=== PATIENT | female | born 1960 | race Caucasian/White ===

== ENCOUNTER 2018-11-18 07:43 | Observation (INO) | payer OTHER ==
--- NOTE | 2018-11-18 08:05 | ED ---
GI/ HPI - HPI Summary HPI Summary: Patient is a 64-year-old female with a complicated medical history who presents to the ED with concern for UTI. She states she has had septicemia 3 times in the past, and was told to come to the closest ED if her temp was ever over 100.0. She states she took her temperature this morning which was 102. She also stated she felt clammy and diaphoretic last evening, but denies this currently. Patient states she is otherwise well, feeling her baseline. She was recently diagnosed with CHF, and is currently taking Lasix. She denies any SOB, CP, abdominal pain, back pain, weakness. She does not feel diaphoretic or clammy at this time, but is concerned due to her frequency of UTIs. She states she needs to take IV antibiotics only for her UTIs as she is allergic to all by mouth medications. She is a patient to the clinics at [facility] called she was able to call the clinic this morning who advised her to come here. - History of Current Complaint Chief Complaint: EDSyncope Stated Complaint: DIZZINESS PER EMS Hx Obtained From: Patient Onset/Duration: Started Hours Ago Timing: Constant Severity: Mild Current Severity: None Pain Intensity: 0 Associated Signs and Symptoms: Positive: Other: - clammy and diaphoretic Aggravating Factor(s): Nothing Alleviating Factor(s): Nothing - Allergy/Home Medications Allergies/Adverse Reactions: Allergies Allergy/AdvReac Type Severity Reaction Status Date / Time No Known Allergies Allergy Verified 11/18/18 07:54 Home Medications: Home Medications NK [No Home Medications Reported] 11/18/18 [History Confirmed 11/18/18] PMH/Surg Hx/FS Hx/Imm Hx Previously Healthy: Yes - Immunization History Hx Pertussis Vaccination: No Immunizations Up to Date: Yes Infectious Disease History: No Infectious Disease History: Denies: Traveled Outside the [place] in Last 30 Days - Social History Occupation: Unemployed Lives: Alone Alcohol Use: Occasionally Hx Substance Use: No Substance Use Type: Reports: None Hx Tobacco Use: Yes Smoking Status (MU): Heavy Every Day Tobacco Smoker Review of Systems Positive: Fever, Chills Eyes: Negative Cardiovascular: Negative Respiratory: Negative Genitourinary: Negative Musculoskeletal: Negative Neurological: Negative All Other Systems Reviewed And Are Negative: Yes Physical Exam Triage Information Reviewed: Yes Vital Signs On Initial Exam: Initial Vitals Temp Pulse Resp BP Pulse Ox 98.1 F 87 20 134/69 100 11/18/18 07:44 11/18/18 07:44 11/18/18 07:44 11/18/18 07:44 11/18/18 07:44 Vital Signs Reviewed: Yes Appearance: Positive: Well-Appearing, Well-Nourished Skin: Positive: Warm, Skin Color Reflects Adequate Perfusion Head/Face: Positive: Normal Head/Face Inspection Eyes: Positive: EOMI, Conjunctiva Clear Neck: Positive: Supple, No Lymphadenopathy Respiratory/Lung Sounds: Positive: Clear to Auscultation, Breath Sounds Present Cardiovascular: Positive: RRR, Pulses are Symmetrical in both Upper and Lower Extremities Musculoskeletal: Positive: Strength/ROM Intact Neurological: Positive: Sensory/Motor Intact, Alert, Oriented to Person Place, Time, Speech Normal Psychiatric: Positive: Affect/Mood Appropriate AVPU Assessment: Alert Diagnostics - Vital Signs Vital Signs Temp Pulse Resp BP Pulse Ox 11/18/18 07:44 98.1 F 87 20 134/69 100 - Laboratory Lab Statement: Any lab studies that have been ordered have been reviewed, and results considered in the medical decision making process. GIGU Course/Dx - Course Course Of Treatment: On arrival into the ED, the patient appears well. Nondiaphoretic and nontoxic in appearing. She is smiling on exam, alert and oriented. Lungs CTA, RR. EOMI/PERRLA. No lymphadenopathy bilaterally. She has a J-tube placement as well as an obvious port site to the right upper chest wall. She states she self-catheterizations times over 20 years for neurogenic bladder and will have frequency of UTIs. Labs obtained which are all WNL with a normal white count. She is afebrile on arrival at 98.9, tachycardia at 127, respirations 19, 96% on room air and 129/76. Her heart rate was rechecked when provider in the room at 105. She states she feels otherwise at her baseline. No evidence of CHF on todays visit at BNP of 71. UA shows obvious UTI with 2+ leukocytes, 3+ WBCs and 2+ bacteria. Discussed this with patient and she states she is only able to have IV infusions an IV abx, so will call her PCP and will obtain antibiotics through the surface. We will call the patient when culture results return. - Diagnoses Differential Diagnoses - Female: Sepsis, Other - fever Provider Diagnoses: UTI (urinary tract infection) Discharge - Sign-Out/Discharge Documenting (check all that apply): Patient Departure Patient Received Moderate/Deep Sedation with Procedure: No - Discharge Plan Condition: Good Disposition: HOME Referrals: No Primary Care Phys,NOPCP [Primary Care Provider] - - Billing Disposition and Condition Condition: GOOD Disposition: Home
[2018-11-18 09:42] LABS: Hematocrit 15 % (35-47); Hemoglobin 4.3 g/dL (12.0-16.0); Mean Corpuscular HGB Conc 28 g/dL (31-36); Mean Corpuscular Hemoglobin 15 pg (27-31); Mean Corpuscular Volume 55 fL (80-97); Mean Platelet Volume 8.2 fL (7.4-10.4); Platelet Count 388 10^3/uL (150-450); Red Blood Count 2.81 10^6 /uL (3.70-4.87); Red Cell Distribution Width 21 % (10-15); White Blood Count 5.7 10^3/uL (3.5-10.8)
[2018-11-18 09:50] LABS: ALT 8 U/L (7-52); AST 11 U/L (13-39); Albumin 4.2 g/dL (3.2-5.2); Albumin/Globulin Ratio 1.8 (1-3); Alkaline Phosphatase 49 U/L (34-104); Anion Gap 8 mmol/L (2-11); BUN/Creatinine Ratio 25.9 (8-20); Blood Urea Nitrogen 15 mg/dL (6-24); CO2 Carbon Dioxide 21 mmol/L (22-32); Calcium 9.3 mg/dL (8.6-10.3); Chloride 110 mmol/L (101-111); EGFR African American 129.2 (>60); EGFR Non-African American 106.8 (>60); Globulin 2.4 g/dL (2-4); Glucose 106 mg/dL (70-100); Potassium 4.3 mmol/L (3.5-5.0); Sodium 139 mmol/L (135-145); Total Protein 6.6 g/dL (6.4-8.9)
[2018-11-18 10:11] LABS: Microcytosis 3+
[2018-11-18 10:14] LABS: ABS Basophils 0.1 10^3/ul (0-0.2)
[2018-11-18 10:20] LABS: Total Iron Binding Capacity 517 mcg/dL (250-450); Transferrin 369 mg/dL (203-362)
[2018-11-18 10:23] LABS: TSH (Thyroid Stimulating Horm) 2.26 mcIU/mL (0.34-5.60)
[2018-11-18 10:33] LABS: % Iron Saturation 3 % (15-55); Iron < 17 ug/dL (50-212)
[2018-11-18 10:48] LABS: Urine Appearance Clear; Urine Bilirubin Negative (Negative); Urine Blood Negative (Negative); Urine Color Straw; Urine Glucose Negative (Negative); Urine Ketones Trace (Negative); Urine Nitrite Negative (Negative); Urine Protein Negative (Negative); Urine Specific Gravity 1.006 (1.010-1.030); Urine Urobilinogen Negative (Negative)
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
[2018-11-18 11:31] LABS: Ferritin 0.9 ng/mL (11-307)
[2018-11-18] MEDS ORDERED: Iohexol 300* (CONTRAST) 10 ML SDV IV ONE (12:16)
[2018-11-18 12:44] LABS: Folate 17.29 ng/mL (>3.99)
[2018-11-18] MEDS ORDERED: Cyanocobalamin INJ * 1,000 MCG/ML VIAL 1 ML VIAL IM ONE (13:13)
[2018-11-18] MEDS ORDERED: Acetaminophen TAB* 325 MG PO PRN ×2 (13:13→14:18)
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
[2018-11-18] MEDS: Nicotine PATCH 14 MG/24 HR* PATCH TRANSDERM SCH (15:45)
[2018-11-18 19:33] LABS: Hematocrit 24 % (35-47); Hemoglobin 7.2 g/dL (12.0-16.0)
[2018-11-18] MEDS ORDERED: Ferric Gluconate IV* 25 MG in NS 0.9% 50 ML* 50 ML IVPB ONE (20:00)
[2018-11-18] MEDS ORDERED: Ferric Gluconate IV* 100 MG in NS 0.9% 100 ML* 100 ML IVPB ONE (21:00)
[2018-11-18] MEDS ORDERED: Nicotine Patch Removal NOTE FOLLOW UP SCH (21:00)
[2018-11-19 01:11] LABS: Hematocrit 23 % (35-47); Hemoglobin 6.9 g/dL (12.0-16.0)
[2018-11-19 06:44] LABS: Hematocrit 25 % (35-47); Hemoglobin 7.9 g/dL (12.0-16.0)
[2018-11-19] MEDS ORDERED: Cyanocobalamin INJ * 1,000 MCG/ML VIAL 1 ML VIAL IM ONE (08:09)
[2018-11-19] MEDS ORDERED: Docusate CAP* 100 MG PO PRN (08:14)
[2018-11-19] MEDS ORDERED: Ferrous Sulfate TAB* 325 MG PO SCH (09:00)
[2018-11-19] MEDS: Nicotine PATCH 14 MG/24 HR* PATCH TRANSDERM SCH (09:38)
[2018-11-19 10:43] VITALS: BP 113/56
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
[2018-11-20] MEDS ORDERED: Cyanocobalamin TAB* 500 MCG PO SCH (09:00)
== END 2018-11-19 11:43 | disposition home or self-care (01) ==
LOC: MERGE 07:43 → ED 07:43 → MEDTELE 11:15
PROVIDERS: ADMIT Internal Medicine; ATTEND Internal Medicine
DX: D50.9 Iron deficiency anemia, unspecified (principal); D51.9 Vitamin B12 deficiency anemia, unspecified; F17.210 Nicotine dependence, cigarettes, uncomplicated
CPT/HCPCS: 36415; 36430; 71260; 74177; 80053; 81003; 82270; 82607; 82728; 82746; 83540; 83550; 83605; 83735; 84443; 84484; 85014; 85018; 85025; 85060; 86850; 86900; 86901; 86922; 96372; 96374; 99285; A9270-GY; G0378; J2916; J3420; P9016; Q9967